=== PATIENT | male | born 1955 | race American Indian/Alaskan Native ===

== ENCOUNTER 2022-02-26 07:21 | Outpatient (CLI) | payer MEDICARE ==
--- NOTE | 2022-02-26 08:29 | Cat Scan Report ---
CT ABDOMEN AND PELVIS WITHOUT CONTRAST INDICATION / CLINICAL INFORMATION: N28.9 RENAL INSUFFICENCY Q63.1 LOBULATED KIDNEY. TECHNIQUE: Axial CT images were obtained through the abdomen and pelvis without IV contrast. Sagittal and morrissey l reformatted images. All CT scans at this location are performed using CT dose reduction for ALARA b y means of automated exposure control. COMPARISON: None at this facility FINDINGS: LOWER CHEST: No significant abnormality. LIVER: No significant abnormality. GALLBLADDER: No significant abnormality. BILE DUCTS: No significant abnormality. PANCREAS: No significant abnormality. SPLEEN: No significant abnormality. ADRENALS: The right adrenal gland is normal. There is a 2 cm low density nodule in the left adrenal g land with internal density measuring -2 Hounsfield units consistent with an adrenal adenoma. RIGHT KIDNEY and URETER: There is a 5.3 cm simple cyst near mid pole. There is a 2.0 cm rounded inter mediate density at the superior pole with internal density measuring 35 Hounsfield units. I suspect t his represents a cyst with hemorrhagic change although a solid lesion cannot be excluded. Consider co rrelation with ultrasound or CT/MRI with contrast. LEFT KIDNEY and URETER: There are 2 low density lesions in the superior left kidney consistent with t iny cysts. A punctate calyceal stone is identified near mid pole. STOMACH and SMALL BOWEL: No significant abnormality. COLON: No significant abnormality. APPENDIX: No significant abnormality. PERITONEUM: No free fluid. No free air. No fluid collection. LYMPH NODES: No significant adenopathy. AORTA and ARTERIES: Mild atherosclerotic calcification without acute abnormality. IVC and VEINS: No significant abnormality. URINARY BLADDER: No significant abnormality. REPRODUCTIVE ORGANS: No significant abnormality. ADDITIONAL FINDINGS: There is been previous surgical repair of umbilical hernia. A small recurrent fa t-containing hernia is identified along the superior border of the mesh. The hernia sac measures up t o 2.3 cm in diameter on sagittal image 18. There is mild laxity of the mesh in the region of the umbi licus but no recurrent hernia. SKELETAL SYSTEM: There is mild to moderate thoracolumbar scoliosis with generative changes. No acute osseous abnormality or bone lesion. IMPRESSION: Bilateral renal cysts are identified as outlined above. One of the cysts in the superior right kidney demonstrates increased internal density. I suspect this represents a hemorrhagic cyst although a susana id renal lesion is difficult to exclude. See above. Follow-up is recommended. No obstructive uropathy . Nonobstructing punctate left renal stone. Left adrenal adenoma. Small recurrent fat-containing hernia along the superior border of the ventral wall repair. Thoracolumbar scoliosis with degenerative changes. No acute inflammatory process. Signer Name: Axel Jane Jr, MD Signed: 02/26/2022 8:25 AM Workstation Name: [id number]
== END 2022-02-26 07:22 | disposition home or self-care (01) ==
LOC: CT 07:21
PROVIDERS: ATTEND Urology
DX: N28.1 Cyst of kidney, acquired (principal); N20.0 Calculus of kidney; N28.9 Disorder of kidney and ureter, unspecified; R35.0 Frequency of micturition; Q63.1 Lobulated, fused and horseshoe kidney; I70.0 Atherosclerosis of aorta; E27.8 Other specified disorders of adrenal gland; K44.9 Diaphragmatic hernia without obstruction or gangrene; M41.84 Other forms of scoliosis, thoracic region
CPT/HCPCS: 74176